=== PATIENT | female | born 1960 | race Two or more races ===

== ENCOUNTER 2020-10-24 13:45 | Outpatient (CLI) | payer OTHER | END 2020-10-24 14:40 | disposition home or self-care (01) | LOC: RAD 13:45 | PROVIDERS: ATTEND Internal Medicine Rheumatology | DX: M17.11 Unilateral primary osteoarthritis, right knee (principal); M17.12 Unilateral primary osteoarthritis, left knee ==

== ENCOUNTER → 2020-12-21 10:29 | Outpatient (CLI) | payer OTHER | END | disposition home or self-care (01) | LOC: RAD 10:29 | PROVIDERS: ATTEND Orthopaedic Surgery | DX: M17.11 Unilateral primary osteoarthritis, right knee (principal); M79.604 Pain in right leg; M79.651 Pain in right thigh ==

== ENCOUNTER → 2021-02-27 08:48 | Outpatient (CLI) | payer OTHER | END | disposition home or self-care (01) | LOC: LAB 08:48 | PROVIDERS: ATTEND Orthopaedic Surgery | DX: D64.89 Other specified anemias (principal); E88.89 Other specified metabolic disorders; D68.8 Other specified coagulation defects; N39.0 Urinary tract infection, site not specified; Z22.322 Carrier or suspected carrier of Methicillin resistant Staphylococcus aureus; I49.8 Other specified cardiac arrhythmias; I10 Essential (primary) hypertension; Z76.89 Persons encountering health services in other specified circumstances ==

== ENCOUNTER 2021-02-27 10:46 | Inpatient (IN) | payer OTHER ==
[~2021-02-27] VITALS: Ht 172.7 cm; Wt 86.2 kg
[2021-03-22] MEDS ORDERED: ARMOUR THYROID30 M1 PO (08:07)
[2021-03-22] MEDS ORDERED: VOLTAR PO (08:08)
[2021-04-10] MEDS ORDERED: DICLOFENAC POTA50 MG (08:12)
[2021-04-10] MEDS ORDERED: XARELTO10 M1 (08:13)
[2021-04-12] MEDS ORDERED: GABAPENTIN100 M2 PO (17:51)
== END 2021-04-12 18:46 | disposition home or self-care (01) | DRG 470 ==
LOC: SURH 03-28 08:30 → EDBD 03-28 10:45 → SURH 03-28 10:45 → O/R 04-10 05:50 → SURH 04-10 05:50
PROVIDERS: ADMIT Orthopaedic Surgery; ATTEND Orthopaedic Surgery
PROC: 0SRC0J9 Replacement of Right Knee Joint with Synthetic Substitute, Cemented, Open Approach (ICD-10-PCS; principal; 2021-04-10 07:15)
DX: M17.11 Unilateral primary osteoarthritis, right knee (principal); D62 Acute posthemorrhagic anemia

== ENCOUNTER 2021-03-30 07:19 | Outpatient (CLI) | payer OTHER ==
[~2021-03-30 07:19] MED LIST: ARMOUR THYROID30 M1 PO; VOLTAR PO
== END 2021-03-30 07:38 | disposition home or self-care (01) ==
LOC: EDBD 07:19 → LAB 07:19
PROVIDERS: ATTEND Orthopaedic Surgery
DX: D64.89 Other specified anemias (principal); E88.89 Other specified metabolic disorders; D68.8 Other specified coagulation defects; N39.0 Urinary tract infection, site not specified; A49.02 Methicillin resistant Staphylococcus aureus infection, unspecified site; E13.69 Other specified diabetes mellitus with other specified complication

== ENCOUNTER 2021-04-06 09:37 | Outpatient (CLI) | payer OTHER | END 2021-04-06 15:00 | disposition home or self-care (01) | LOC: LAB 09:37 | PROVIDERS: ATTEND Orthopaedic Surgery | DX: Z03.818 Encounter for observation for suspected exposure to other biological agents ruled out (principal) ==